=== PATIENT | male | born 1990 | race Caucasian/White ===

== ENCOUNTER → 2024-10-31 | Outpatient (CLI) | payer OTHER ==
--- NOTE | 2024-10-31 17:53 | US ---
EXAMINATION TYPE: US kidneys/renal and bladder DATE OF EXAM: 10/31/2024 COMPARISON: NONE CLINICAL INDICATION: Male, 33 years old with history of Z82.71 FAMILY HISTORY OF POLYCYSTIC KIDNEY; f amily history of polycystic kidneys TECHNIQUE: Grayscale imaging of the bilateral kidneys and urinary bladder: FINDINGS: EXAM MEASUREMENTS: Right Kidney: 14.4x7.2x6.6 cm Left Kidney: 13.1x7.8x6.6 cm Right Kidney: polycystic. Largest cyst measures 1.7x1.7x1.4cm Left Kidney: polycystic 4.2x4.1x3.3cm. Difficult to ascertain borders due to innumerable cysts. Bladder: wnl Bilateral Jets seen: Yes There is no evidence for hydronephrosis at this point in time. No nephrolithiasis is seen. No sisi s are identified. The urinary bladder is anechoic. IMPRESSION: 1. No evidence for hydronephrosis. 2. Bilateral polycystic kidneys. Correlate for polycystic kidney disease. If not already performed e valuation for cerebral aneurysm should be performed [facility], , 10/31/2024 5:50 PM
== END | disposition home or self-care (01) ==
LOC: RADUSWWP 15:55
PROVIDERS: ATTEND Family Medicine
DX: Q61.3 Polycystic kidney, unspecified (principal); Z82.71 Family history of polycystic kidney
CPT/HCPCS: 76770

== ENCOUNTER → 2024-12-08 | Outpatient (CLI) | payer OTHER ==
--- NOTE | 2024-12-09 13:10 | MR ---
EXAMINATION TYPE: MR angio head wo con DATE OF EXAM: 12/08/2024 7:07 PM COMPARISON: None. CLINICAL INDICATION: Male, 33 years old with history of Q61.2 POLYCYSTIC KIDNEY, ADULT TYPE, Polycyst ic kidney disease, family history of aneurysm TECHNIQUE: Multiplanar multiecho imaging on a 3.0 Gisela magnet is performed through the [place] [facility] [place] [facility] [place]. 3-D [id number] imaging is performed. Source images are reviewed on the computer in the axi al plane. Reconstructed images rotating on the computer are reviewed. IV Contrast: mL (None, if empty) FINDINGS: The internal carotid arteries bifurcate normally into A1 and M1 segments. The A2 segments are normal. Middle cerebral artery branches are normal. Ophthalmic arteries appear normal. Anterior communicating artery is patent. The right posterior communicating artery is small but patent. The left posterior communicating artery is small but patent. Vertebrobasilar arteries within the [id number] are normal. Posterior cerebral vasculature is norm al. No suspicious aneurysm or aneurysmal dilatation is evident. No obstructions are identified. No significant flow-limiting stenosis is evident. IMPRESSION: 1. NORMAL MRA [facility] [place]. [facility], , 12/09/2024 1:08 PM
== END | disposition home or self-care (01) ==
LOC: RADMRIMAIN 18:36
PROVIDERS: ATTEND Family Medicine
DX: Q61.2 Polycystic kidney, adult type (principal)
CPT/HCPCS: 70544